=== PATIENT | male | born 1945 | race African-American/Black ===

== ENCOUNTER 2017-08-19 14:43 | Outpatient (CLI) | payer MEDICARE, MEDICAID ==
--- NOTE | 2017-08-19 16:22 | RAD ---
2 VIEW CHEST: Date: 08/19/17 CLINICAL HISTORY: Bronchitis. FINDINGS: There is a subtle patchy density of the left lung base. Cardiac silhouette is mildly prominent. No s ignificant vascular congestion. There is mild interstitial prominence of the lungs. No evidence of a significant effusion or a discrete pneumothorax. Evidence of prior sternotomy and osseous degenerat belia change. IMPRESSION: 1. Findings of mild CHF. 2. Subtle patchy density of left lung base could relate to edema or subtle area of alveolar infiltr ation related to pneumonia. Correlate clinically and, as necessary, imaging follow-up may be obtaine dRuy POS: KATIA
== END 2017-08-19 14:44 | disposition home or self-care (01) ==
LOC: RAD-FRANK 14:43
PROVIDERS: ATTEND Nurse Practitioner Family
DX: I50.20 Unspecified systolic (congestive) heart failure (principal); I25.709 Atherosclerosis of coronary artery bypass graft(s), unspecified, with unspecified angina pectoris; J40 Bronchitis, not specified as acute or chronic; E11.319 Type 2 diabetes mellitus with unspecified diabetic retinopathy without macular edema
CPT/HCPCS: 71020